=== PATIENT | female | born 1955 | race Caucasian/White ===

== ENCOUNTER 2018-11-18 07:03 | Emergency (ER) | payer OTHER ==
[~2018-11-18] VITALS: Ht 165.1 cm; Wt 69.9 kg
[~2018-11-18 07:03] MED LIST: ACUPRIL PO; ASPIR 8181 MG PO; GLYBURIDE2.5 MG PO; HYDROCHLOROTH12.5 M1 PO; JANUMET XR 50-1 EAC1 PO; LIPITOR20 MG PO; PERCOCET 5/3251 TAB PO; SINGULAIR10 MG PO; SYNTHROID112 MCG PO; ZYRTEC10 M3 PO; [UNRECOGNIZED DRUG - OTHER] PO
== END 2018-11-18 11:08 | disposition home or self-care (01) ==
LOC: ER 07:03
DX: J45.901 Unspecified asthma with (acute) exacerbation (principal)